=== PATIENT | female | born 1955 | race Caucasian/White ===

== ENCOUNTER → 2020-08-16 | Outpatient (CLI) | payer OTHER | END | disposition home or self-care (01) | LOC: RAD 06:54 | PROVIDERS: ATTEND Psychiatry & Neurology Neurology | DX: M50.33 Other cervical disc degeneration, cervicothoracic region (principal); M47.812 Spondylosis without myelopathy or radiculopathy, cervical region; M48.02 Spinal stenosis, cervical region; M51.44 Schmorl's nodes, thoracic region; M25.78 Osteophyte, vertebrae | CPT/HCPCS: 72141; 72146 ==